=== PATIENT | female | born 1960 | race Caucasian/White ===

== ENCOUNTER → 2016-07-22 | Outpatient (CLI) | payer OTHER ==
[~2016-07-22] VITALS: Ht 170.2 cm; Wt 71.7 kg
[~2016-07-22] MED LIST: ADVAIR 250/501 DISK IH; ALLERGY RELIE15.8 ML BOTH NARES; PROZAC40 MG PO; SINGULAIR10 MG PO; VALTREX50 MG/ML PO
== END | disposition home or self-care (01) ==
LOC: AMB 11:42
DX: Z12.11 Encounter for screening for malignant neoplasm of colon (principal); D12.2 Benign neoplasm of ascending colon; D12.5 Benign neoplasm of sigmoid colon; J45.909 Unspecified asthma, uncomplicated; E78.5 Hyperlipidemia, unspecified; Z82.49 Family history of ischemic heart disease and other diseases of the circulatory system
CPT/HCPCS: 88305; J1100; J2250; J2405